=== PATIENT | female | born 1985 | race African-American/Black ===

== ENCOUNTER 2018-10-10 06:10 | Emergency (ER) | payer OTHER ==
[~2018-10-10] VITALS: Ht 162.6 cm; Wt 93.0 kg
[~2018-10-10 06:10] MED LIST: FERR325E14 PO; IBUP-974 PO; PREN-385 PO
[2018-10-10 06:24] VITALS: BP 95/60
--- NOTE | 2018-10-10 06:30 | NUR ---
PT TAKEN TO BED 11
--- NOTE | 2018-10-10 06:36 | NUR ---
PT PRESENTED TO ER WITH SORE THROAT AND CONGESTION. VSS. PT STATES SORE THROAT WITH BURNING PAIN AT 6/10 X 3 DAYS. PATIENT HAS HORSE VOICE AND STATED SHE HAS "LOST HER VOICE FOR 3 DAYS". PT DENIES N/V/D AND FEVER. RR SYMMETRICAL AND NON-LABORED. ER MD NOTIFIED OF PT CONDITIONS. SIDE RAILS UP, BED IN LOWEST POSITION. CONTINUE TO MONITOR PATIENT.
--- NOTE | 2018-10-10 07:08 | NUR ---
pt sitting up in gurney, no s/s resp distress noted, no accessory muscle use noted. continues to wait for MD lazcano.
[2018-10-10] MEDS ORDERED: predniSONE 20 MG TAB PO ONE (07:35)
[2018-10-10 07:41] VITALS: BP 95/60
== END 2018-10-10 07:41 | disposition home or self-care (01) ==
LOC: MED 06:10
DX: J02.8 Acute pharyngitis due to other specified organisms (principal); Z88.6 Allergy status to analgesic agent; Z79.1 Long term (current) use of non-steroidal anti-inflammatories (NSAID); Z79.899 Other long term (current) drug therapy
CPT/HCPCS: 36415; 87081; 87804; 99283; J7512

== ENCOUNTER 2019-05-10 09:19 | Emergency (ER) | payer OTHER ==
[~2019-05-10] VITALS: Ht 162.6 cm; Wt 112.7 kg
[2019-05-10 09:23] VITALS: BP 131/76
--- NOTE | 2019-05-10 09:32 | NUR ---
BIB SELF. PT AAOX4, C/O SORE THROAT X 1 WEEK , COUGH X 1 DAY, GETTING WORSE SINCE THIS MORNING. DENIES FEVER, SOB, N&V. SORE THROAT PAIN GETS WORSE WHILE COUGHING 10/10, PAIN AT THROAT 4/10 WHILE NOT COUGHING. MILD REDNESS AT BACK WALL OF THROAT.CLEAR BILATERAL LUNGS SOUND UPON AUSCULTATION. ER TO [facility] PT.
--- NOTE | 2019-05-10 09:32 | NUR ---
Note sridhar in EDM - 05/10/19 at 0959 by [facility] SORE THROAT X 1 WEEK , COUGH X 1 DAY, GETTING WORSE SINCE THIS MORNING. DENIES FEVER. MD AT THE BEDSIDE, ASSESSING PT. PAIN GETS WORSE WHILE COGH 10/10, PAIN AT THROAT 4/10 WHILE NOT COUGHING. HX: ANEMIA TX: NONE
--- NOTE | 2019-05-10 09:32 | NUR ---
Patient ambulated to bed 9. RN evaluating patient at bedside.
--- NOTE | 2019-05-10 09:34 | NUR ---
DR. SCHUSTER AT THE BEDSIDE FOR PT EVAL.
[2019-05-10 09:57] VITALS: BP 131/76
--- NOTE | 2019-05-10 09:57 | NUR ---
Patient discharged with v/s stable. Written and verbal after care instructions given and explained. Patient alert, oriented and verbalized understanding of instructions. Ambulatory with steady gait. All questions addressed prior to discharge. ID band removed. Patient advised to follow up with PMD. Rx of PREDNISONE AND NORCO given. Patient educated on indication of medication including possible reaction and side effects. Opportunity to ask questions provided and answered.
== END 2019-05-10 09:57 | disposition home or self-care (01) ==
LOC: MED 09:19
DX: J02.9 Acute pharyngitis, unspecified (principal); R07.9 Chest pain, unspecified; Z98.890 Other specified postprocedural states; Z88.8 Allergy status to other drugs, medicaments and biological substances; Z79.899 Other long term (current) drug therapy
CPT/HCPCS: 99283

== ENCOUNTER 2019-08-23 07:48 | Emergency (ER) | payer OTHER ==
[~2019-08-23] VITALS: Ht 162.6 cm; Wt 90.7 kg
[2019-08-23 07:57] VITALS: BP 105/66
[2019-08-23 08:17] VITALS: BP 105/66
== END 2019-08-23 08:17 | disposition home or self-care (01) ==
LOC: MED 07:48
DX: R05 Cough (principal); R07.89 Other chest pain; Z79.899 Other long term (current) drug therapy; Z88.8 Allergy status to other drugs, medicaments and biological substances; Z98.890 Other specified postprocedural states
CPT/HCPCS: 99283

== ENCOUNTER 2020-01-05 09:37 | Emergency (ER) | payer OTHER ==
[~2020-01-05] VITALS: Ht 162.6 cm; Wt 110.7 kg
[2020-01-05 09:54] VITALS: BP 119/66
--- NOTE | 2020-01-05 10:01 | NUR ---
WAIT AT LOBBY.
--- NOTE | 2020-01-05 12:22 | NUR ---
C/O SORE THROAT AND COUGH X 4 DAYS-- FULL CLEAR SPEECH , NO ACCESSORY MUSCLE USE NOTED
--- NOTE | 2020-01-05 13:37 | NUR ---
Patient discharged with v/s stable. Written and verbal after care instructions given and explained. Patient alert, oriented and verbalized understanding of instructions. Ambulatory with steady gait. All questions addressed prior to discharge. ID band removed. Patient advised to follow up with PMD. Rx of PREDNISONE, ALBUTEROL, TESSALON given. Patient educated on indication of medication including possible reaction and side effects. Opportunity to ask questions provided and answered.
== END 2020-01-05 13:37 | disposition home or self-care (01) ==
LOC: MED 09:37
DX: B34.9 Viral infection, unspecified (principal); J40 Bronchitis, not specified as acute or chronic; Z88.6 Allergy status to analgesic agent
CPT/HCPCS: 99283

== ENCOUNTER 2020-04-21 13:15 | Emergency (ER) | payer OTHER ==
[~2020-04-21] VITALS: Ht 162.6 cm; Wt 115.2 kg
[2020-04-21 13:34] VITALS: BP 116/78
--- NOTE | 2020-04-21 13:38 | NUR ---
Patient ambulated to bed 1. RN evaluating patient at bedside.
--- NOTE | 2020-04-21 13:40 | NUR ---
35 Y/O FEMALE APPROX 6 WEEKS C/O VAGINAL BLEEDING X2 DAYS. PT STATES BLEEDING BEGAN YESTERDAY AND WAS VERY LIGHT. TODAY, BLEEDING BEGAN TO GET HEAVIER. DENIES ANY CLOTS AND HAS JUST BEEN USING TISSUE A PANTY LINER. PT DENIES DIZZINESS/WEAKNESS. C/O PELVIC CRAMPING 02/26. DENIES N/V/D. PTS FIRST OB APPOINTMENT IS SCHEDULED FOR THIS SUNDAY. RESP EVEN AND UNLABORED. NO PMH
--- NOTE | 2020-04-21 14:45 | NUR ---
US tech at bedside for exam.
[2020-04-21 14:48] LABS: BASOPHILS # (AUTO) 0.1 K/uL (0.00-0.22); BASOPHILS % (AUTO) 1.3 % (0.0-2.0); EOSINOPHILS % (AUTO) 0.3 % (0.0-4.0); HEMATOCRIT 36.7 % (36-48); HEMOGLOBIN 11.7 g/dL (12.0-16.0); LYMPHOCYTES # (AUTO) 2.1 K/uL (2.5-16.5); LYMPHOCYTES % (AUTO) 21.6 % (20.5-51.1); MEAN CORPUSCULAR HEMOGLOBIN 26 pg (27-31); MEAN CORPUSCULAR HGB CONC 32 g/dL (33-37); MEAN CORPUSCULAR VOLUME 81.7 fL (80-94); MONOCYTES % (AUTO) 10.6 % (1.7-9.3); NEUTROPHILS # (AUTO) 6.3 K/uL (1.8-7.7); NEUTROPHILS % (AUTO) 66.2 % (42.2-75.2); PLATELET COUNT (AUTO) 316 K/uL (140-450); RED BLOOD CELL COUNT(AUTO) 4.49 MIL/uL (4.20-5.40); RED CELL DISTRIBUTION WIDTH 15.7 % (11.6-13.7); WHITE BLOOD COUNT (AUTO) 9.5 K/uL (4.8-10.8)
[2020-04-21 14:50] LABS: APPEARANCE,URINE CLEAR (CLEAR); BILIRUBIN,URINE 1+ (NEGATIVE); BLOOD, URINE 3+ (NEGATIVE); COLOR,URINE YELLOW (YELLOW); LEUKOCYTE ESTERASE ,URINE TRACE (NEGATIVE); NITRITE, URINE NEGATIVE (NEGATIVE); UGLUCOSE NEGATIVE (NEGATIVE)
--- NOTE | 2020-04-21 15:15 | NUR ---
PELVIC DONE AT BEDSIDE WITH MELISA ZHANG
[2020-04-21 16:00] LABS: RBC,URINE 80-100 /HPF (0-5)
--- NOTE | 2020-04-21 16:21 | NUR ---
Patient discharged with v/s stable. Written and verbal after care instructions given and explained. Patient alert, oriented and verbalized understanding of instructions. Ambulatory with steady gait. All questions addressed prior to discharge. ID band removed. Patient advised to follow up with PMD. Rx of NITROFURANTOIN given. Patient educated on indication of medication including possible reaction and side effects. Opportunity to ask questions provided and answered.
[2020-04-21 16:22] VITALS: BP 115/78
== END 2020-04-21 16:21 | disposition home or self-care (01) ==
LOC: MED 13:15
DX: O20.0 Threatened abortion (principal); O23.41 Unspecified infection of urinary tract in pregnancy, first trimester; Z79.899 Other long term (current) drug therapy; Z88.8 Allergy status to other drugs, medicaments and biological substances; Z3A.01 Less than 8 weeks gestation of pregnancy
CPT/HCPCS: 36415; 76817; 81001; 81025; 84702; 85025; 86900; 86901; 87086; 99284; Q0092

== ENCOUNTER 2023-08-31 08:10 | Emergency (ER) | payer OTHER ==
[~2023-08-31] VITALS: Ht 162.6 cm; Wt 104.3 kg
[2023-08-31 08:23] VITALS: BP 118/75; PULSE 88; RESP 18; TEMP 97.2; O2SAT 98
[2023-08-31] MEDS ORDERED: PROM6.2590 PO (09:44)
[2023-08-31] MEDS ORDERED: ACET-10509 PO (09:44)
[2023-08-31 10:06] VITALS: BP 118/75; PULSE 88; RESP 18; TEMP 97.2; O2SAT 98
[2023-08-31 10:36] LABS: FLU A ANTIGEN negative (NEGATIVE); FLU B ANTIGEN NEGATIVE (NEGATIVE)
== END 2023-08-31 10:07 | disposition home or self-care (01) ==
LOC: MED 08:10
DX: U07.1 COVID-19 (principal); Z79.899 Other long term (current) drug therapy; Z88.5 Allergy status to narcotic agent
CPT/HCPCS: 99283